=== PATIENT | female | born 1980 | race Caucasian/White ===

== ENCOUNTER 2016-07-24 11:06 | Emergency (ER) | payer OTHER ==
[2016-07-24 11:58] VITALS: TEMP 98.1; BMI 34.0
[2016-07-24 13:22] LABS: BASOPHIL 0.6 % (0-2.0); EOSINOPHIL 1.2 % (0-4.5); MCH 30.2 pg (25.7-33.7); MCHC 33.8 g/dl (32.0-36.0); MEAN CELL VOLUME 89.4 fl (80-96); MEAN PLT VOLUME 8.4 fl (7.5-11.1); NEUTROPHILS 71.6 % (42.8-82.8); PLATELET COUNT 262 K/MM3 (134-434); RDW 13.4 % (11.6-15.6)
--- NOTE | 2016-07-24 13:24 | PDOC ---
History of Present Illness - History of Present Illness Initial Comments: 07/24/16 13:29 Ms. Erwin is a 36 y/o female G2-P2, presenting to the ED to complaining of drainage from her surgical site. Patient delivered one healthy infant on 07/15/2016. There were no complications at time of delivery. She was discharged from the hospital on 07/18/16. Today, patient reports drainage from her surgical site that she first noticed this morning. Pt. states that there was some pain at the site last evening, but it has since resolved. Pt. has no other complaints at this time. Denies fevers, chills, chest pain, SOB, dyspnea, N/V/D. <Rosey Rajput - Last Filed: 07/24/16 17:54> - History of Present Illness Initial Comments: 07/30/16 21:36 not seen by Nimisha CRAVEN <Nimisha Young - Last Filed: 07/30/16 21:37> - General Chief Complaint: Revisit,Wound Recheck Stated Complaint: POST-SURG, LOWER PELVIC PAIN (INFECTION) Time Seen by Provider: 07/24/16 12:36 Past History - Past Medical History Anemia: No Asthma: No Cancer: No Cardiac Disorders: No Diabetes: No HTN: No Seizures: No Thyroid Disease: No - Reproductive History (#): 2 Para: 1 - Immunization History Immunization Up to Date: Yes - Psycho/Social/Smoking Cessation Hx Anxiety: No Suicidal Ideation: No Smoking Status: No Smoking History: Never smoked Have you smoked in the past 12 months: No Number of Cigarettes Smoked Daily: 0 Hx Alcohol Use: No Drug/Substance Use Hx: No Substance Use Type: None Hx Substance Use Treatment: No <Rosey Rajput - Last Filed: 07/24/16 17:54> <Nimisha Young - Last Filed: 07/30/16 21:37> - Past Medical History Allergies/Adverse Reactions: Allergies Allergy/AdvReac Type Severity Reaction Status Date / Time No Known Allergies Allergy Verified 07/24/16 11:52 Home Medications: Ambulatory Orders Ibuprofen [Motrin -] 600 mg PO TID #21 tablet 07/18/16 Sulfamethoxazole/Trimethoprim [Bactrim DS -] 1 tab PO BID #20 tablet 07/24/16 Levofloxacin [Levaquin] 750 mg PO DAILY #7 tab MDD 1 07/30/16 *Physical Exam - Vital Signs Last Vital Signs Temp Pulse Resp BP Pulse Ox 98.1 F 58 L 16 123/70 98 07/24/16 11:53 07/24/16 11:53 07/24/16 11:53 07/24/16 11:53 07/24/16 11:53 - Physical Exam Comments: 07/24/16 13:39 GENERAL: Well developed, well nourished. Awake and alert. No acute distress. HEENT: Normocephalic, atraumatic. PERRLA, EOMI. No conjunctival pallor. Sclera are non- icteric. Moist mucous membranes. Oropharynx is clear. NECK: Supple. Full ROM. No JVD. Carotid pulses 2+ and symmetric, without bruits. No thyromegaly. No lymphadenopathy. CARDIOVASCULAR: Regular rate and rhythm. No murmurs, rubs, or gallops. Distal pulses are 2+ and symmetric. PULMONARY: No evidence of respiratory distress. Lungs clear to auscultation bilaterally. No wheezing, rales or rhonchi. ABDOMINAL: Soft. Non-tender. Non-distended. No rebound or guarding. No organomegaly. Normoactive bowel sounds. MUSCULOSKELETAL Normal range of motion at all joints. No bony deformities or tenderness. No CVA tenderness. EXTREMITIES: No cyanosis. No clubbing. No edema. No calf tenderness. SKIN: site is warm, and erythematous with obvious drainage. Drainage shows foul smelling pus. Ilene are present. Normal capillary refill. No jaundice. NEUROLOGICAL: Alert, awake, appropriate. Cranial nerves 2-12 intact. No deficits to light touch and temperature in face, upper extremities and lower extremities. No motor deficits in the in face, upper extremities and lower extremities. Normoreflexic in the upper and lower extremities. Normal speech. Toes are down- going bilaterally. Gait is normal without ataxia. PSYCHIATRIC: Cooperative. Good eye contact. Appropriate mood and affect. <Rosey Rajput - Last Filed: 07/24/16 17:54> - Vital Signs Last Vital Signs Temp Pulse Resp BP Pulse Ox 98.1 F 62 18 118/65 98 07/24/16 11:53 07/24/16 18:15 07/24/16 18:15 07/24/16 18:15 07/24/16 18:15 <Nimisha Young - Last Filed: 07/30/16 21:37> ED Treatment Course - LABORATORY CBC & Chemistry Diagram: 07/24/16 13:14 07/24/16 13:14 <Rosey Rajput - Last Filed: 07/24/16 17:54> - LABORATORY CBC & Chemistry Diagram: 07/24/16 13:14 07/24/16 13:14 - ADDITIONAL ORDERS Additional order review: 07/24/16 13:14 Blood Culture - Final Blood - Peripheral Venous NO GROWTH AFTER 5 DAYS INCUBATION 07/24/16 13:14 Blood Culture - Final Blood - Peripheral Venous NO GROWTH AFTER 5 DAYS INCUBATION 07/24/16 13:14 Gram Stain - Final Incision Wound Culture - Final Pseudomonas Aeruginosa Enterobacter Cloacae Enterococcus Faecalis Diphtheroid/Corynebacterium Prevotella Bivia Prevotella Disiens 07/24/16 13:14 RBC 4.06 MCV 89.4 MCHC 33.8 RDW 13.4 MPV 8.4 Neutrophils % 71.6 Lymphocytes % 18.8 Monocytes % 7.8 Eosinophils % 1.2 Basophils % 0.6 - Medications Given in the ED: ED Medications Discontinued Medications Generic Name Dose Route Start Last Admin Trade Name Richardq PRN Reason Stop Dose Admin Ampicillin Sodium/Sulbactam 100 mls @ 200 mls/hr 07/24/16 13:27 07/24/16 16:09 Sodium 3 gm/ Sodium Chloride IVPB 07/24/16 13:56 200 mls/hr ONCE ONE Administration Vancomycin HCl 1,000 mg/ 250 mls @ 250 mls/hr 07/24/16 13:27 07/24/16 13:50 Dextrose IVPB 07/24/16 14:26 250 mls/hr ONCE ONE Administration <Nimisha Young - Last Filed: 07/30/16 21:37> Medical Decision Making - Medical Decision Making 07/24/16 12:42 Ms. Erwin is a 36 y/o female s/p on the 15 of July. There appears to be cellulitis around the surgical site as well as puritic discharge. Will order CBC, CMP, wound culture as well as blood cultures. Will also order CT scan of abdomen/pelvis with contrast to look for collections. Will consult with Dr. Jamil her [employer]. 1. Labs; CBC, CMP, wound culture, blood culture 2. IV antibiotics 3. CT with IV contrast Will re-evalaute 07/24/16 13:[address] Jamil; discussed the case, will keep updated with results. 07/24/16 16:00 Wound culture shows moderate amount gram positive cocci in clusters 07/24/16 17:57 CT scan shows no fluid collection at the site of the wound. Inflammatory changes noted on CT consistent with cellulitis. Discussed findings with Dr. Reilly. Is okay with DC home and oral antibiotics. Will see patient in the office this week. Will discharge home at this time. Prescription for bactrum given. Pt. understands she cannot breast feed while taking the antibiotics. 07/24/16 18:03 <Rosey Rajput - Last Filed: 07/24/16 17:54> *DC/Admit/Observation/Transfer - Discharge Dispostion Admit: No <Rosey Rajput - Last Filed: 07/24/16 17:54> <Nimisha Young - Last Filed: 07/30/16 21:37> Diagnosis at time of Disposition: wound infection - Discharge Dispostion Disposition: HOME - Prescriptions Prescriptions: Sulfamethoxazole/Trimethoprim [Bactrim DS -] 1 tab PO BID #20 tablet Levofloxacin [Levaquin] 750 mg PO DAILY #7 tab MDD 1 - Referrals Referrals: Chelsea Steiner MD [Primary Care Provider] - - Patient Instructions Printed Discharge Instructions: How to Care for a Surgical Wound, DI for Wound Infection Additional Instructions: You have an infection of your surgical site. Take the antibiotics as prescribed and take all of the pills. You cannot breastfeed for 2 weeks. Continue to pump and dump the breast milk. The baby can have formula at this time. Follow up with Dr. Reilly this week. If you have increasing pain at the site, increased drainage, fevers or chills, return to the ED. Print Language: UPPER SORBIAN
[2016-07-24] MEDS ORDERED: VANCOMYCIN 1,000 MG in DEXTROSE 5%-WATER - 250 ML IVPB ONE (13:27)
[2016-07-24] MEDS ORDERED: AMPICILLIN NA/SULBACTAM NA 3 GM in SODIUM CHLORIDE 100 ML IVPB ONE (13:27)
--- NOTE | 2016-07-24 13:28 | PDOC ---
*Physical Exam - Vital Signs Last Vital Signs Temp Pulse Resp BP Pulse Ox 98.1 F 58 L 16 123/70 98 07/24/16 11:53 07/24/16 11:53 07/24/16 11:53 07/24/16 11:53 07/24/16 11:53 ED Treatment Course - LABORATORY CBC & Chemistry Diagram: 07/24/16 13:14 07/24/16 13:14 Medical Decision Making - Medical Decision Making 07/24/16 13:26 Patient seen and evaluated with the nurse practitioner. I agree with the overall evaluation, assessment, and management with the following summary of visit: 36-year-old female postop day 9 of presents with purulent drainage and redness to the site. Abdominal wall cellulitis with malodorous discharge from the wound, generally well-appearing otherwise 36-year-old female with infected site, no fever here. Labs, imaging IV antibiotics Will consult Dr. Saldivar of [employer] *DC/Admit/Observation/Transfer Diagnosis at time of Disposition: Wound infection following section,
[2016-07-24] MEDS ORDERED: VANCOMYCIN 1 GRAM (PRE-DOCKED) 250 ML IVPB ONE (13:34)
[2016-07-24 13:46] LABS: ANION GAP 9 (8-16); CALCIUM 9.2 mg/dL (8.5-10.1); CO2 28 mmol/L (21-32); GLUCOSE,RANDOM 90 mg/dL (74-106)
[2016-07-24 13:50] LABS: ALK PHOS 141 U/L (45-117); BILIRUBIN,TOTAL 0.8 mg/dL (0.2-1.0); CREATININE 0.7 mg/dL (0.55-1.02); SGOT/AST 29 U/L (15-37); SGPT/ALT 58 U/L (12-78); TOT PROT 6.9 g/dl (6.4-8.2)
[2016-07-24 18:16] VITALS: BP 118/65; PULSE 62
--- NOTE | 2016-07-29 14:26 | PDOC ---
Patient Follow-up (Call Back) - Post ED Follow - Up Disposition at time of original discharge: HOME Reason for Call Back: Abnwl. Microbiology (Pt. was discharged on bactrim DS 1 tab bid, wound culture revealed pseudomonas aeruginosa, ent cloac, ent faecal sensitive to levaquin, enterobacter cloascae sensitve to bactrim DS, called pt. left message for pt to call back will order levaquin 750 mg daily for 7 days)
--- NOTE | 2016-07-30 15:22 | PDOC ---
Patient Follow-up (Call Back) - Post ED Follow - Up Disposition at time of original discharge: HOME Reason for Call Back: Abnwl. Microbiology (Tried to reach patient began left message on her cell phone in Tunisian and Divehi to call here in regards to abnormal wound culture results from 07/24/2016 patient was discharged on Bactrim DS one tab twice a day needs in addition to that Levaquin. Tried to leave message on 's cell phone it is not set up to receive messages. Called Dr. Snyder's office left message for him to call back he called back, the resident called back he said that he will see the patient on to call [facility] to see if we had correct information to be able to contact the patient. I called 2 [facility] and spoke to FACILITY SERVICE MANAGER and they gave me phone numbers for the patient and tried to reach the number that they had with husbands and again was unable to leave a message on his voicemail. Certified Letter will be sent to patient to contact us. Dr. Snyder is aware that patient will need additional medication to cover for additional organisms.)
--- NOTE | 2016-07-30 15:36 | PDOC ---
Patient Follow-up (Call Back) - Post ED Follow - Up Disposition at time of original discharge: HOME Reason for Call Back: Abnwl. Microbiology (Called back in regards abnormal micro wound culture report from 07/24/2016 will send our RX for levaquin 750 mg daily for 7 days to [facility]. Pt. is aware to continue bactrim DS a scheduled appointment to see Dr. Merlos this week.)
== END 2016-07-24 18:16 | disposition home or self-care (01) ==
LOC: JER 11:06
DX: O86.0 Infection of obstetric surgical wound (principal)
CPT/HCPCS: 36415; 74177-TC; 80053; 84703; 85025; 87040; 87070; 87186; 87205; 96365; 96368; 99283-25

== ENCOUNTER 2018-09-28 10:15 | Emergency (ER) | payer OTHER ==
[2018-09-28 10:26] VITALS: BP 131/77; PULSE 81; TEMP 98; BMI 32.0
--- NOTE | 2018-09-28 11:22 | PDOC ---
History of Present Illness - General Chief Complaint: Cold Symptoms Stated Complaint: FLU SYSMPTOMS Time Seen by Provider: 09/28/18 11:09 - History of Present Illness Initial Comments: 09/28/18 11:19 38-year-old female without comorbidities presents for evaluation of facial congestion and left ear pain 4 days without systemic symptoms. Past History - Past Medical History Allergies/Adverse Reactions: Allergies Allergy/AdvReac Type Severity Reaction Status Date / Time No Known Allergies Allergy Verified 09/28/18 10:26 Home Medications: Ambulatory Orders Amox-Tr/K Cl [Augmentin - 875Mg Tablet] 1 tab PO BID #20 tablet 09/28/18 Budesonide [Rhinocort Allergy] 1 spray NS ONCE #1 spray.pump 09/28/18 Anemia: No Asthma: No Cancer: No Cardiac Disorders: No COPD: No Diabetes: No HTN: No Seizures: No Thyroid Disease: No - Reproductive History (#): 2 Para: 1 - Immunization History Immunization Up to Date: Yes - Suicide/Smoking/Psychosocial Hx Smoking Status: No Smoking History: Never smoked Have you smoked in the past 12 months: No Number of Cigarettes Smoked Daily: 0 Information on smoking cessation initiated: No Hx Alcohol Use: No Drug/Substance Use Hx: No Substance Use Type: None Hx Substance Use Treatment: No Review of Systems - Review of Systems Constitutional: No: Fever HEENTM: Yes: Ear Pain, Nose Congestion. No: Throat Pain Respiratory: No: Cough *Physical Exam - Vital Signs Last Vital Signs Temp Pulse Resp BP Pulse Ox 98 F 81 18 131/77 97 09/28/18 10:25 09/28/18 10:25 09/28/18 10:25 09/28/18 10:25 09/28/18 10:25 - Physical Exam Comments: 09/28/18 11:20 HEAD: NC/AT EYES: Conjuntiva clear Ears: Right ear canal and tympanic membrane are normal left ear canal is normal tympanic membrane is erythemic and bulging NOSE: Injected turbinates tender sinuses THROAT: Moist mucous membrances, oral pharanx clear, uvula midline NECK: Supple without adenopathy CARDIAC: S1 S2 LUNGS: CTA Full and Equal breath sounds ABDOMEN: Soft NT ND MS: Full ROM in all joints without edema NEUROLOGIC: No gross sensory or motor deficits, NVID SKIN: Normal color and temperature no lesions or rashes Medical Decision Making - Medical Decision Making 09/28/18 11:20 I will treat her with Augmentin for a sinus infection, she may have otitis media as well. Also prescribed a nasal spray *DC/Admit/Observation/Transfer Diagnosis at time of Disposition: Sinusitis, Otitis media - Discharge Dispostion Disposition: HOME Condition at time of disposition: Stable Decision to Admit order: No - Prescriptions Prescriptions: Amox-Tr/K Cl [Augmentin - 875Mg Tablet] 1 tab PO BID #20 tablet Budesonide [Rhinocort Allergy] 1 spray NS ONCE #1 spray.pump - Referrals Referrals: Aleksandr Gupta MD [Staff Physician] - - Patient Instructions Printed Discharge Instructions: Middle Ear Infection, Sinusitis, DI for Sinusitis Additional Instructions: Please take the antibiotics as directed as well as the nasal spray. Finish the entire course of the antibiotics for the next 10 days. Return to the emergency room for worsening symptoms. Follow-up with ear nose and throat doctor in 1-2 days for further evaluation and treatment options. - Post Discharge Activity
== END 2018-09-28 11:26 | disposition home or self-care (01) ==
LOC: JERFT 10:15
DX: H66.92 Otitis media, unspecified, left ear (principal); J01.90 Acute sinusitis, unspecified
CPT/HCPCS: 99281-25

== ENCOUNTER 2018-10-12 09:48 | Emergency (ER) | payer OTHER ==
[2018-10-12 10:06] VITALS: BP 119/72; PULSE 81; TEMP 97.8; BMI 31.1
--- NOTE | 2018-10-12 11:21 | PDOC ---
History of Present Illness - General Chief Complaint: Ear Problem Stated Complaint: LT. EAR PAIN Time Seen by Provider: 10/12/18 11:07 - History of Present Illness Initial Comments: 10/12/18 11:17 38-year-old female without comorbidities presents for evaluation of left ear pain 15 days. She just finished a course of an oral antibiotic for 10 days for otitis media she continues to have left ear pain with clear drainage over the last 3 days. No fever. She assures me there is no chance of . Past History - Past Medical History Allergies/Adverse Reactions: Allergies Allergy/AdvReac Type Severity Reaction Status Date / Time No Known Allergies Allergy Verified 10/12/18 10:01 Home Medications: Ambulatory Orders Ciprofloxacin HCl/Dexameth [Ciprodex Otic Suspension] 4 drop AD BID 7 Days #1 bottle 10/12/18 Anemia: No Asthma: No Cancer: No Cardiac Disorders: No COPD: No Diabetes: No HTN: No Seizures: No Thyroid Disease: No - Reproductive History (#): 2 Para: 1 - Immunization History Immunization Up to Date: Yes - Suicide/Smoking/Psychosocial Hx Smoking Status: No Smoking History: Never smoked Have you smoked in the past 12 months: No Number of Cigarettes Smoked Daily: 0 Hx Alcohol Use: No Drug/Substance Use Hx: No Substance Use Type: None Hx Substance Use Treatment: No Review of Systems - Review of Systems Constitutional: No: Fever HEENTM: Yes: Ear Pain, Ear Discharge *Physical Exam - Vital Signs Last Vital Signs Temp Pulse Resp BP Pulse Ox 97.8 F 81 16 119/72 100 10/12/18 10:01 10/12/18 10:01 10/12/18 10:01 10/12/18 10:01 10/12/18 10:01 - Physical Exam Comments: 10/12/18 11:18 HEAD: NC/AT EYES: Conjuntiva clear Ears: Right ear canal tympanic membrane are normal. Left ear canal is erythemic with clear discharge tympanic membrane is mildly erythematous but not retracted NOSE: No d/c THROAT: Moist mucous membrances, oral pharanx clear, uvula midline NECK: Supple without adenopathy CARDIAC: S1 S2 LUNGS: CTA Full and Equal breath sounds ABDOMEN: Soft NT ND MS: Full ROM in all joints without edema NEUROLOGIC: No gross sensory or motor deficits, NVID SKIN: Normal color and temperature no lesions or rashes Medical Decision Making - Medical Decision Making 10/12/18 11:19 Ciprodex for otitis externa *DC/Admit/Observation/Transfer Diagnosis at time of Disposition: Otitis externa - Discharge Dispostion Disposition: HOME Condition at time of disposition: Stable Decision to Admit order: No - Prescriptions Prescriptions: Ciprofloxacin HCl/Dexameth [Ciprodex Otic Suspension] 4 drop AD BID 7 Days #1 bottle - Referrals Referrals: Jodi Johnson MD [Primary Care Provider] - Aleksandr Gupta MD [Staff Physician] - - Patient Instructions Printed Discharge Instructions: DI for Otitis Externa, Otitis Externa Additional Instructions: Please use the antibiotic drops as directed. Return to the emergency room for worsening symptoms and follow-up with ear nose and throat doctor without fail in 1-2 days. - Post Discharge Activity
== END 2018-10-12 11:35 | disposition home or self-care (01) ==
LOC: JERFT 09:48
DX: H60.502 Unspecified acute noninfective otitis externa, left ear (principal)
CPT/HCPCS: 99281-25